=== PATIENT | female | born 1970 | race Caucasian/White ===

== ENCOUNTER → 2016-06-22 10:29 | Outpatient (CLI) | payer OTHER ==
[2015-06-10 09:00] VITALS: BMI 32.5
[~2016-06-22 10:29] MED LIST: CONTRAVE PO; FORTAMET500 MG/BOT PO; INVOKANA300 MG PO; NAPROXEN SODIU220 M1 PO; ULTRAM50 MG PO; VICTOZA0.6 MG/0.1 SQ; VITAMIN D50000 UNIT PO
== END | disposition home or self-care (01) ==
LOC: D.CT 10:29
DX: C83.00 Small cell B-cell lymphoma, unspecified site (principal)

== ENCOUNTER → 2016-08-30 16:35 | Outpatient (CLI) | payer OTHER ==
[2015-06-10 09:00] VITALS: BMI 32.5
== END | disposition home or self-care (01) ==
LOC: D.MAMMO 11:30
DX: Z12.31 Encounter for screening mammogram for malignant neoplasm of breast (principal)

== ENCOUNTER → 2016-09-04 14:09 | Outpatient (CLI) | payer OTHER ==
[2015-06-10 09:00] VITALS: BMI 32.5
== END | disposition home or self-care (01) ==
LOC: D.MAMMO 11:30
DX: N63 Unspecified lump in breast (principal)

== ENCOUNTER → 2019-01-16 15:42 | Outpatient (CLI) | payer BC ==
[2015-06-10 09:00] VITALS: BMI 32.5
== END | disposition home or self-care (01) ==
LOC: D.US 01-12 16:00
PROVIDERS: ATTEND Family Medicine
DX: N63.20 Unspecified lump in the left breast, unspecified quadrant (principal)